=== PATIENT | male | born 1975 | race African-American/Black ===

== ENCOUNTER → 2017-01-29 | Outpatient (CLI) | payer OTHER ==
--- NOTE | ~2017-01-29 | 2DMMODE ---
[facility] [address] [place] [address] 2 D/M-MODE ECHOCARDIOGRAM Name: PROSPER MATTHEWS III Room #: REG [facility]#: [id number] Admission: 01/29/17 Attend Phys: Sanchez Grant Discharge: Date of : 73 Date of Service: 01/29/17 1228 Report #: [id number] THIS REPORT FOR: //name// APPROVED REPORT EXAM: Comprehensive 2D, Doppler, and color-flow Echocardiogram Patient Location: Out-Patient Blood Pressure: 150/98 mmHg HR: 61 bpm Other Information Study Quality: Excellent Indications Hypertension/HDD Chest Pain 2D Dimensions RVDd: 38.07 mm LVEF(%): 68.95 (>50%) IVSd: 13.84 (7-11mm) LVOT Diam: 24.50 (18-24mm) LVDd: 42.26 mm PWd: 12.43 (7-11mm) Ascending Aorta: 32.15 mm LVDs: 26.06 (25-40mm) IVC: 18.00 mm Aortic Root: 35.00 mm Thomson's LVEF: 68.95 % Volumes Left Atrial Volume (Systole) Single Plane 4CH: 54.83 mL Single Plane 2CH: 53.36 mL LA ESV Index: 28.00 mL/m2 Aortic Valve AoV Peak Neel.: 1.22 m/s AO Peak Gr.: 5.99 mmHg LV Max P.76 mmHg LV Max: 0.97 m/s Mitral Valve MV PHT: 47.73 ms MV E Max Neel.: 0.79 m/s E/A Ratio: 1.5 MV A Neel.: 0.52 m/s MV Decel. Time: 164.59 ms Pulmonary Valve [facility] [address] [place] [address] 2 D/M-MODE ECHOCARDIOGRAM Name: PROSPER MATTHEWS TALHA ALFRED Room #: [facility]#: [id number] Admission: 01/29/17 Attend Phys: Sanchez Grant Discharge: Date of : 73 Date of Service: 01/29/17 1228 Report #: [id number] PV Peak Neel.: 1.10 m/s PV Peak Gr.: 3.15 mmHg DE End Vmax: 1.10 m/s Tricuspid Valve RAP Estimate: 5.00 mmHg Left Ventricle The left ventricle is normal size. There is normal LV segmental wall motion. There is normal left ventricular wall thickness. Left ventricular systolic function is normal. The left ventricular ejection fraction is within the normal range. LVEF is 60-65%. Left ventricular filling pattern is normal for age. Right Ventricle The right ventricle is normal size. The right ventricular systolic function is normal. Atria The left atrium size is normal. Aortic Valve The aortic valve is normal in structure. Aortic valve is thickened but has adequate excursion there is some focal echo but only seen on parasternal long. clinical correlation suggested No aortic regurgitation is present. There is no aortic valvular stenosis. Mitral Valve The mitral valve is normal in structure. There is no mitral valve regurgitation noted. Tricuspid Valve The tricuspid valve is normal in structure. There is trace tricuspid regurgitation. The right atrial pressure is estimated at 5 mmHg. There is no pulmonary hypertension. Pulmonic Valve The pulmonary valve is normal in structure. There is no pulmonic valvular regurgitation. Great Vessels The aortic root is normal in size. IVC is normal in size and collapses >50% with inspiration. Pericardium There is no pericardial effusion. [facility] [address] [place] [address] 2 D/M-MODE ECHOCARDIOGRAM Name: PROSPER MATTHEWS [facility] Room #: REG [facility].#: [id number] Admission: 01/29/17 Attend Phys: Sanchez Grant Discharge: Date of : 73 Date of Service: 01/29/17 1228 Report #: [id number] <Conclusion> The left ventricle is normal size. Left ventricular systolic function is normal. The left ventricular ejection fraction is within the normal range. LVEF is 60-65%. The aortic valve is normal in structure. Aortic valve is thickened but has adequate excursion there is some focal echo but only seen on parasternal long. clinical correlation suggested The mitral valve is normal in structure. There is trace tricuspid regurgitation. The right atrial pressure is estimated at 5 mmHg. There is no pulmonary hypertension. <ELECTRONICALLY SIGNED> By: Sanchez Hardy MD 01/29/17 1228 1228 1228 Sanchez Hardy MD /INF
== END ==
LOC: NUC 08:47
DX: I10 Essential (primary) hypertension (principal); R07.9 Chest pain, unspecified